=== PATIENT | male | born 1995 | race Hispanic/Latino ===

== ENCOUNTER 2023-10-20 09:18 | Emergency (ER) | payer SELFPAY ==
[2023-10-20 09:24] VITALS: BP 110/63
--- NOTE | 2023-10-20 10:20 | ED.GENMED ---
History of Present Illness
General
Chief Complaint: Skin Surface Trauma
Source: patient
Exam Limitations: none
Time Seen by Provider: 10/20/23 09:32
Nursing documentation reviewed up to this point in time: agreed with
Travel History
Have you had any contact with someone who has COVID-19?: No
Do you have any symptoms of coronavirus? Fever > 100 degrees, chills, cough, shortness of breath, sore throat, loss of taste or smell, muscle aches, or headache?: No
History of Present Illness
History of Present Illness:
Patient is a 27-year-old male who presents to the ER for the laceration from chainsaw which occurred prior to arrival at work. Patient denies pain unsure of his last tetanus.
Review of Systems
Review of Systems
Allergies reviewed?: Yes
All Other Systems: ROS reviewed and negative except as documented in HPI and ROS
Constitutional: Reports no symptoms; Denies fever, fatigue or chills
Musculoskeletal: Reports other (laceration to right anterior lower leg )
Skin: Reports other (right lower leg laceration )
Neurological: Reports no symptoms
Psychiatric: Reports no symptoms
Phy Exam
General Physical Exam
General Presentation: no apparent distress
General age: appears stated age
General Skin: warm and dry
General Habitus: normal
General Mental: alert
General Hydration: appears well hydrated
Neurological Exam
Neurological Exam: alert and oriented x3
Musculoskeletal Exam
Musculoskeletal Exam: other (rle with strong pulses approx 9 cm full-thickness laceration to right anterior lower leg and 2 separate lacerations above and below approximately 3 cm all lacerations through the subcutaneous tissue only)
Skin Exam
Skin Exam: normal color and warm/dry
Psychiatric Exam
Psychiatric Exam: normal mood/affect
Course
Orders/Labs/Results
Orders:
Orders
10/20/23 10:21
Cephalexin Monohydrate [Keflex] 500 mg PO NOW STA
Tetanus/Diphth/Acelpertussis [Adacel] 0.5 ml IM .ONCE ONE
Vital Signs
Initial and Last Documented VS:
Initial Vital Signs
Temp Pulse Resp BP Pulse Ox
98.6 F 52 16 110/63 97
10/20/23 09:24 10/20/23 09:24 10/20/23 09:24 10/20/23 09:24 10/20/23 09:24
Last Documented Vital Signs
Temp Pulse Resp BP Pulse Ox
98.6 F 52 16 110/63 97
10/20/23 09:24 10/20/23 09:24 10/20/23 09:24 10/20/23 09:24 10/20/23 09:24
Procedures
Laceration Closure
Right Lower Anterior Leg:
Status of Wound: clean
Size of Wound in cm: 9
Description of Wound Edges: sharp
Preparation: cleaned with saline and other (Clean with wound care solution as well)
Anesthesia: 1% Lidocaine with epi
Type of Closure: layered closure, interrupted sutures and mattress sutures
Skin Closure Material: 3-0 nylon
Number of sutures: 9
Additional information:
In addition there are 3�3.0 Vicryl observable sutures
2nd laceration full-thickness into subcutaneous tissue only approx 3 cm sutured with 3�3 .0 nylon simple interrupted
Throat laceration approximate 3 cm full-thickness into subcutaneous only suture with 3-3.0 nylon simple interrupted
MDM/Problems Addressed
Differential Diagnosis Includes:
Not limited to laceration less likely tendon injury
MDM/Problems Addressed:
Patient with several lacerations to right anterior lower leg as documented from chainsaw through to subcutaneous tissue only no bony tenderness wounds irrigated with copious stephanie normal saline and wound cleanser. Sutured as documented will treat
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 Tetanus updated. Wound care reviewed.
*Critical Care Note
Total Time (30-74mins, 75-104mins- exclusive of procedures): Not Applicable
ED Attending Note
-
Portions of this chart may have been created with voice recognition software.� Occasional wrong word or��sound alike� substitutions may have occurred due to the inherent limitations of voice recognition software.
Discharge Plan
Departure
Date of Disposition: 10/20/23
Time of Disposition: 10:27
Patient with high blood pressure during this ER visit?: No
Covid-19: Not Applicable
Instructions: Wound Care (DC), Laceration Repair With Stitches (DC)
Prescriptions:
New
cephalexin 500 mg capsule
500 mg PO Q6H Qty: 20 0RF
Activity Restrictions/Additional Instructions:
Keep wound clean and dry for 24 hours after 24 hours wash twice a day with soap and water pat dry apply small layer of antibiotic ointment to the area see family doctor as needed 2 days for wound check and sutures are to be removed in 12 days.
Return if any signs of infection.
Interventions
Interventions:
ED-Skin Assessment Last Done: 10/20/23 09:42
Discharge Date and Time
Print Language: CHINESE
[2023-10-20] MEDS: KEFLEX 500 MG PO (10:32)
[2023-10-20] MEDS: ADACEL 0.5 ML IM (10:32)
== END 2023-10-20 10:49 | disposition home or self-care (01) ==
LOC: EMR 09:18
PROVIDERS: EMERGENCY PHYSICIAN Emergency Medicine
DX: S81.811A Laceration without foreign body, right lower leg, initial encounter (principal); W29.3XXA Contact with powered garden and outdoor hand tools and machinery, initial encounter; Z23 Encounter for immunization
CPT/HCPCS: 99282; 12034; 90471; 90715

== ENCOUNTER 2023-11-02 12:01 | Emergency (ER) | payer SELFPAY ==
[2023-11-02 12:03] VITALS: BP 123/63; BMI 24.8
--- NOTE | 2023-11-02 12:29 | ED.GENMED ---
History of Present Illness
General
Chief Complaint: Wound Check/Suture Removal
Source: patient
Exam Limitations: none
Time Seen by Provider: 11/02/23 12:22
History of Present Illness
History of Present Illness:
See MDM
Past History
Past History
ED Past Medical History: None
ED Past Surgical History: None
Social History
Tobacco: Non-smoker
Alcohol: None
Phy Exam
Physical Exam
Physical Exam:
See MDM
Course
Vital Signs
Initial and Last Documented VS:
Initial Vital Signs
Temp Pulse Resp BP Pulse Ox
98.9 F 78 16 123/63 97
11/02/23 12:03 11/02/23 12:03 11/02/23 12:03 11/02/23 12:03 11/02/23 12:03
Last Documented Vital Signs
Temp Pulse Resp BP Pulse Ox
98.9 F 78 16 123/63 97
11/02/23 12:03 11/02/23 12:03 11/02/23 12:03 11/02/23 12:03 11/02/23 12:03
MDM/Problems Addressed
Differential Diagnosis Includes:
HPI and MDM Narrative:
27-year-old male presenting for evaluation of suture removal. Patient recently had stitches placed emergency department for chainsaw injury to his right leg. Patient denies any pain or infection concern
15 stitches removed with #11 blade. Patient tolerated procedure well.
Physical exam
General: Well appearing and non-toxic
HEENT: protecting airway
Neck: appears supple
CV: No evidence of cyanosis
Resp: No accessory muscle use
Abd: Non-distended
Extremities: Multiple lacerations noted to anterior mid right zazueta with stitches in place. No surrounding cellulitic changes or discharge noted
Neuro: alert
Psych: Normal affect
Skin: Intact
Problems Addressed including Acute and Chronic Conditions affecting care:
1. Suture removal
Acuity: acute
Prognosis: stable
Details: 15 stitches removed with a #11 blade.
Drug therapy (if applicable): OTC meds, please see d/c instruction regarding Rx drugs
Amount and/or Complexity of Data Reviewed
Clinical info obtained from: Patient
External data reviewed: N/A
Labs I independently reviewed (but not limited to): N/A
Radiology: N/A
Pulse Ox: not hypoxic
EKG independently reviewed: N/A
Call Worker Person: N/A
Critical Care: N/A
Risk of Complication:
Social Determinants of health: Good social support
Discussed with other providers: N/A
Escalation of Care includes Admit/Obs: After being observed in the Emergency Department, pt stable for discharge.
Occasional wrong word or 'sound a like' substitutions may have occurred due to the inherent limitations of voice recognition software. Read the chart carefully and recognize, using context, where substitutions have occurred.
*Critical Care Note
Total Time (30-74mins, 75-104mins- exclusive of procedures): Not Applicable
ED Attending Note
-
Portions of this chart may have been created with voice recognition software.� Occasional wrong word or��sound alike� substitutions may have occurred due to the inherent limitations of voice recognition software.
Discharge Plan
Departure
Patient Disposition: Home (Routine Discharge)
Date of Disposition: 11/02/23
Time of Disposition: 12:29
Patient with high blood pressure during this ER visit?: No
Discharge Problem:
Visit for suture removal
Prescriptions:
No Action
cephalexin 500 mg capsule
500 mg PO Q6H Qty: 20 0RF
Referrals:
NONE,* [Family Provider] -
Activity Restrictions/Additional Instructions:
Watch for signs of infection: fever over 100.5', increasing pain, red streaks around wound, swelling, or increasing drainage of pus. If any of these happen, return to ED promptly.
Interventions
Interventions:
*Risk Screen - Suicide Last Done: 11/02/23 12:03
*Neglect/Abuse Screening Last Done: 11/02/23 12:03
Discharge Date and Time
Print Language: [id number]
== END 2023-11-02 12:37 | disposition home or self-care (01) ==
LOC: EMR 12:01
PROVIDERS: EMERGENCY PHYSICIAN Student in an Organized Health Care Education/Training Program
DX: Z48.02 Encounter for removal of sutures (principal)
CPT/HCPCS: 99281